=== PATIENT | female | born 1960 | race Caucasian/White ===

== ENCOUNTER 2016-07-10 22:18 | Emergency (ER) | payer OTHER ==
[2016-07-10 22:25] VITALS: BMI 32.5
--- NOTE | 2016-07-10 22:54 | EDPRACDOC ---
- General Information Chief Complaint: Chest Pain Stated Complaint: CHEST PAIN Time Seen by Provider: 07/10/16 22:32 Information Source: Patient Mode of Arrival: Car Home Medications: Home Medications Omeprazole 40 mg PO BID 05/28/15 Ranitidine [Zantac] 300 mg PO QHS 05/28/15 Calcium With Vitamin D 2 tabs PO DAILY 06/13/15 Vitamin C 1 tab PO DAILY 06/13/15 Acyclovir 800 mg PO 07/01/16 Anastrozole [Arimidex] 1 mg PO DAILY 07/01/16 CYANOCOBALAMIN (Vitamin B-12) [Vitamin B-12 (cyanocobalamin)] QMONTH 07/01/16 Estrogens,Conjugated [Premarin] WEEKLY 07/01/16 Metformin HCl 07/01/16 Methotrexate Sodium [Trexall] 12.5 mg PO DAILY 07/01/16 Metoprolol Tartrate 25 mg PO DAILY 07/01/16 Naproxen 500 mg PO BID 07/01/16 Prednisone 7.5 mg PO DAILY 07/01/16 Allergies/Adverse Reactions: Allergies Allergy/AdvReac Type Severity Reaction Status Date / Time dicyclomine HCl [From Bentyl] Allergy Unknown Verified 06/14/15 15:36 nickel Allergy Unknown Verified 07/01/16 07:32 Sulfa (Sulfonamide Allergy Rash-Genera Verified 06/14/15 15:36 Antibiotics) lized [Sulfa(Sulfonamide Antibiotics)] ADHESIVES Allergy Unknown Uncoded 06/14/15 15:36 - History of Present Illness Onset: [employer] HPI: PT PRESENTS WITH SUDDEN ONSET RIGHT UPPER CHEST PAIN A FEW HOURS AGO. SHE HAS RECENT LEFT KNEE SCOPE AND IS CONCERNED ABOUT PE. CURRENTLY ON ASPIRIN DAILY. Chest Pain Location: Reports: Right Chest Pain Radiation: Reports: None Symptoms Occur: Reports: At Rest PE Risk Factors: Reports: Recent Trauma/Surgery Pain Description: Reports: Sharp Pain Severity: Moderate Pain Improves With: Reports: Nothing Associated Signs and Symptoms: Reports: None ED Past Medical History - History Reviewed Yes Nurses notes reviewed and agree except as marked - Patient Medical History Respiratory History: Denies: Pneumonia (2002) GI/ History: Reports: Gastroesophageal Reflux Musculoskeletal History: Reports: Arthritis (LEFT THUMB, BACK AND NECK) Psychological History: Reports: Anxiety. Denies: Depression Systemic History: Reports: Cancer (breast), Anemia Additional Past Medical History: HYSTERECTOMY Surgical History: Reports: Cholecystectomy, Hysterectomy ((2006)), Tonsillectomy /Adnoidectomy, Other (RIGHT MASTECTOMY) - Family Medical History Reports: Hypertension (mother and father), Cancer (father- prostate, mother- breast), Cardiac Disorders (father). Denies: Diabetes, Stroke - Social Medical History Smoking Status: Never smoker Lives With: Family Lives In: Home EDM Review of Systems - Review of Systems ROS Negative Except as Marked: Yes All systems reviewed and were negative except as marked Respiratory: negative: Shortness of Breath Cardiovascular: Chest Pain (RIGHT UPPER OUTER CHEST). negative: Syncope Gastrointestinal: negative: Pain, Vomiting Integumentary: Bruising (LEFT KNEE/LOWER LEG AFTER SURGERY) - Physical Exam Constitutional: Alert Oriented to: Time, Person, Place Last recorded Vital Signs: Last Vital Signs Temp 97.9 F 07/10/16 22:21 Pulse 89 07/10/16 22:21 Resp 20 07/10/16 22:21 BP 148/91 07/10/16 22:21 Pulse Ox 99 07/10/16 22:21 Oxygen Pulse Oxygen Saturation 99 O2 Device Room Air Oxygen Flow Rate Fraction of Inspired Oxygen ( FIO2) - HEENT Head: negative: Deformity, Laceration Eye Exam: negative: Conjunctival Injection, Pale Conjunctiva Oropharynx: negative: Membranes Dry Nose: negative: Congestion, Discharge Neck: negative: Limited ROM - Respiratory/Cardiovascular Respiratory: Normal - CTA. negative: Accessory Muscle Use, Diminished, Tachypnea Cardiovascular: negative: Bradycardia, Tachycardia, Irregular - GI Auscultation: Normal Palpation: Normal Tenderness: Non tender - Musculoskeletal Extremities: Pedal Pulse (PALPABLE), Radial Pulse (PALPABLE) - Integumentary Skin: Warm, Dry, Other (ECCHYMOSIS TO LEFT ANTERIOR LOWER LEG) - Neurologic Memory Impaired: Normal Motor Function: Normal Mood Description: Anxious, Appropriate Thought: Coherent Perception: Normal ED Chest Pain Exam - Respiratory/Cardiovascular Chest Palpation: negative: Tender, Reproduces Pain - Action Patient received Aspirin within last 24 hours?: Yes ASA given in the ED: No - Results 07/10/16 23:10 07/10/16 23:10 - EKG EKG #1 EKG Time: 22:41 -: Yes EKG interpreted by me Rate: bpm: 85 [place]: Normal Rhythm: NSR Block: None Hypertrophy: None ST: Normal Decision Time to Discharge: 01:20 - Departure Yes I personally saw and evaluated the patient. Disposition: Home Condition: Stable Final Diagnosis: Chest wall pain Instructions: Chest Pain (ED), Chest Wall Pain Education/Counseling Given To: Patient Education/Counseling Given Regarding: Diagnosis, Treatment, Prognosis, Follow Up Referrals: None,No Provider [Primary Care Provider] - As Needed
[2016-07-10] MEDS ORDERED: Pharmacy Review for Metformin - IV Contrast Given SCH (23:00)
[2016-07-10 23:21] LABS: AUTOMATED BASOPHIL 0.7 % (0-2); AUTOMATED EOSINOPHIL 1.3 % (0-5); AUTOMATED LYMPH 30.1 % (17-44); AUTOMATED NEUTROPHIL 58.9 % (45-76); MPV 8.5 fL (7.4-10.4)
[2016-07-10 23:33] LABS: BLOOD UREA NITROGEN 15 MG/DL (7-17); CALCIUM 8.8 MG/DL (8.4-10.2); CALCULATED OSMOLALITY 272 MOs/Kg (270-290); CHLORIDE 104 mEq/L (98-107); GLUCOSE 127 MG/DL (70-99); SODIUM LEVEL 140 mEq/L (137-146); TOTAL PROTEIN 6.8 G/DL (6.3-8.2)
[2016-07-10 23:36] LABS: PARTIAL THROMB. TIME 21.3 SEC (22-35); PT-INR 0.9
[2016-07-11 01:10] VITALS: BP 113/61; PULSE 68
--- NOTE | 2016-07-11 01:17 | DIRPT ---
CLINICAL DATA: Acute onset of midsternal chest pain. Recent laparoscopic knee surgery. Initial encounter. EXAM: CT ANGIOGRAPHY CHEST WITH CONTRAST TECHNIQUE: Multidetector CT imaging of the chest was performed using the standard protocol during bolus administration of intravenous contrast. Multiplanar CT image reconstructions and MIPs were obtained to evaluate the vascular anatomy. CONTRAST: 80 mL of Isovue 370 IV contrast COMPARISON: CTA of the chest performed 05/28/2015 FINDINGS: There is no evidence of pulmonary embolus. Minimal bilateral atelectasis is noted, with mild right middle lobe scarring. There is no evidence of pleural effusion or pneumothorax. No masses are identified; no abnormal focal contrast enhancement is seen. Visualized mediastinal nodes remain borderline normal in size. No pericardial effusion is identified. Scattered coronary artery calcification is seen. The great vessels are grossly unremarkable in appearance. No axillary lymphadenopathy is seen. The visualized portions of the thyroid gland are unremarkable in appearance. The visualized portions of the liver and spleen are unremarkable. The patient is status post cholecystectomy, with clips noted at the gallbladder fossa. The visualized portions of the pancreas, adrenal glands and left kidney are unremarkable. A right-sided breast implant is noted. No acute osseous abnormalities are seen. Review of the MIP images confirms the above findings. IMPRESSION: 1. No evidence of pulmonary embolus. 2. Minimal bilateral atelectasis noted, with mild right middle lobe scarring. 3. Scattered coronary artery calcification noted. Electronically Signed By: Cristian Damian M.D. On: 07/11/2016 01:15
[2016-07-11 01:32] VITALS: TEMP 98
== END 2016-07-11 01:30 | disposition home or self-care (01) ==
LOC: ED 22:18
DX: R07.89 Other chest pain (principal); K21.9 Gastro-esophageal reflux disease without esophagitis; F41.9 Anxiety disorder, unspecified; D64.9 Anemia, unspecified; Z79.82 Long term (current) use of aspirin; Z79.899 Other long term (current) drug therapy
CPT/HCPCS: 36415; 71275; 80053; 84484; 85025; 85610; 85730; 93005; 99285; A9698